=== PATIENT | female | born 1990 | race Caucasian/White ===

== ENCOUNTER 2016-07-21 00:41 | Inpatient (IN) | payer OTHER ==
[~2016-07-21] VITALS: Ht 160 cm; Wt 115.7 kg
[~2016-07-21 00:41] MED LIST: IBUP-974 PO
[2016-07-21] MEDS ORDERED: LACTATED RINGERS 1,000 ML IV SCH (06:32)
[2016-07-21 06:50] LABS: BASOPHILS # (AUTO) 0.1 K/uL (0.00-0.22); EOSINOPHILS # (AUTO) 0.1 K/uL (0-0.4); EOSINOPHILS % (AUTO) 1.7 % (0.0-4.0); HEMOGLOBIN 12.7 g/dL (12.0-16.0); LYMPHOCYTES # (AUTO) 2.1 K/uL (2.5-16.5); MEAN CORPUSCULAR HEMOGLOBIN 29 pg (27-31); MEAN CORPUSCULAR HGB CONC 33 g/dL (33-37); MEAN CORPUSCULAR VOLUME 88 fL (80-94); MONOCYTES # (AUTO) 0.6 K/uL (0.8-1.0); NEUTROPHILS # (AUTO) 5.6 K/uL (1.8-7.7); NEUTROPHILS % (AUTO) 65.3 % (42.2-75.2); PLATELET COUNT (AUTO) 247 K/uL (140-450); RED BLOOD CELL COUNT(AUTO) 4.33 MIL/uL (4.20-5.40); RED CELL DISTRIBUTION WIDTH 12.9 % (11.6-13.7); WHITE BLOOD COUNT (AUTO) 8.5 K/uL (4.8-10.8)
[2016-07-21 06:57] LABS: BILIRUBIN,URINE 1+ (NEGATIVE); BLOOD, URINE NEGATIVE (NEGATIVE); COLOR,URINE YELLOW (YELLOW); LEUKOCYTE ESTERASE ,URINE NEGATIVE (NEGATIVE); NITRITE, URINE NEGATIVE (NEGATIVE); PROTEIN,URINE TRACE (NEGATIVE); UGLUCOSE NEGATIVE (NEGATIVE); UROBILINOGEN,URINE 0.2 EU/dL (0.2 - 1)
[2016-07-21] MEDS ORDERED: CITRIC ACID/SODIUM CITRATE 30 ML UDC PO SCH (07:00)
[2016-07-21] MEDS ORDERED: OXYTOCIN 10 UNITS/ML VIAL ONE ×2 (07:03→07:47)
[2016-07-21 07:21] LABS: APPEARANCE,URINE HAZY (CLEAR)
[2016-07-21 07:24] LABS: ICTOTEST NEGATIVE (NEGATIVE)
[2016-07-21 07:25] LABS: BACTERIA,URINE 1+ /HPF (None Seen); MUCUS,URINE 2+ /LPF (None Seen); RBC,URINE 0-3 /HPF (0-5); WBC,URINE 0-3 /HPF (0-5)
[2016-07-21] MEDS ORDERED: ePHEDrine 50 MG/ML VIAL ONE (07:47)
[2016-07-21 07:49] VITALS: BP 120/71
[2016-07-21] MEDS ORDERED: MORPHINE PRES FREE 10 MG/10 ML AMP IV ONE (07:52)
[2016-07-21] MEDS ORDERED: fentaNYL 0.05 MG/ML VIAL ONE (07:52)
[2016-07-21] MEDS ORDERED: INFLUENZA VIRUS VACCINE QUAD 0.5 ML SYR IMVAC SCH (07:55)
[2016-07-21] MEDS ORDERED: PREN-380 PO (07:56)
[2016-07-21] MEDS ORDERED: FERR-193 PO (07:56)
[2016-07-21] MEDS ORDERED: NALOXONE 0.4 MG/ML VIAL IVP PRN ×3 (08:20)
[2016-07-21] MEDS ORDERED: diphenhydrAMINE 50 MG/ML VIAL IVP PRN (08:20)
[2016-07-21] MEDS ORDERED: NALBUPHINE 10 MG/ML AMP IVP PRN (08:20)
[2016-07-21] MEDS ORDERED: KETOROLAC 60 MG/2 ML VIAL IM PRN (08:20)
[2016-07-21] MEDS ORDERED: ONDANSETRON 4 MG/2 ML VIAL IVP PRN ×2 (08:20)
[2016-07-21] MEDS ORDERED: OXYTOCIN 20 UNITS/LR PREMIX 1,000 ML IV ONE (08:59)
[2016-07-21] MEDS ORDERED: ONDANSETRON 4 MG/2 ML VIAL ONE (08:59)
[2016-07-21] MEDS ORDERED: diphenhydrAMINE 50 MG/ML VIAL ONE (08:59)
--- NOTE | 2016-07-21 09:07 | NUR ---
PATIENT HAS BEEN SCREENED AND CATEGORIZED LOW NUTRITION RISK. PATIENT WILL BE SEEN WITHIN 7 DAYS OF ADMISSION. 07/27/[address]
[2016-07-21] MEDS ORDERED: KETOROLAC 30 MG/ML VIAL IVP PRN (11:50)
[2016-07-21] MEDS ORDERED: HYDROcodone/APAP 5/325 MG 1 TAB TAB PO PRN (12:50)
[2016-07-21] MEDS ORDERED: MAGNESIUM CITRATE 300 ML BTL PO SCH (12:50)
[2016-07-21] MEDS ORDERED: TEMAZEPAM 15 MG CAP PO PRN (12:50)
[2016-07-21] MEDS ORDERED: oxyCODONE/APAP 5/325 MG 1 TAB TAB PO PRN (12:50)
[2016-07-21] MEDS ORDERED: MEASLES, MUMPS, AND RUBELLA 1 VIAL SQVAC PRN (12:50)
[2016-07-21] MEDS ORDERED: SIMETHICONE 80 MG TAB.CHEW PO PRN (12:50)
[2016-07-21] MEDS ORDERED: TRIMETHOBENZAMIDE 200 MG/2 ML SYR IM PRN (12:50)
[2016-07-21] MEDS: OXYTOCIN 20 UNITS/LR PREMIX 1,000 ML IV SCH (17:39)
[2016-07-21] MEDS ORDERED: NACL 0.9% 500 ML IV SCH (18:10)
[2016-07-21] MEDS: DOCUSATE SOD/SENNA 50/8.6 MG 1 TAB PO SCH (21:00)
[2016-07-22] MEDS: OXYTOCIN 20 UNITS/LR PREMIX 1,000 ML IV SCH (02:51)
[2016-07-22 07:07] LABS: BASOPHILS % (AUTO) 0.3 % (0.0-2.0); EOSINOPHILS # (AUTO) 0.1 K/uL (0-0.4); EOSINOPHILS % (AUTO) 0.9 % (0.0-4.0); HEMATOCRIT 27.2 % (36-48); HEMOGLOBIN 8.8 g/dL (12.0-16.0); LYMPHOCYTES # (AUTO) 1.2 K/uL (2.5-16.5); LYMPHOCYTES % (AUTO) 15.3 % (20.5-51.1); MEAN CORPUSCULAR HEMOGLOBIN 29 pg (27-31); MEAN CORPUSCULAR HGB CONC 32 g/dL (33-37); MEAN CORPUSCULAR VOLUME 89 fL (80-94); MONOCYTES # (AUTO) 0.5 K/uL (0.8-1.0); MONOCYTES % (AUTO) 6.8 % (1.7-9.3); NEUTROPHILS # (AUTO) 5.8 K/uL (1.8-7.7); NEUTROPHILS % (AUTO) 76.7 % (42.2-75.2); PLATELET COUNT (AUTO) 174 K/uL (140-450); RED BLOOD CELL COUNT(AUTO) 3.04 MIL/uL (4.20-5.40); WHITE BLOOD COUNT (AUTO) 7.6 K/uL (4.8-10.8)
[2016-07-22] MEDS ORDERED: SODIUM PHOSPHATE 118 ML ENEM RC SCH (09:00)
[2016-07-22] MEDS: IBUPROFEN 800 MG TAB PO PRN ×3 (09:46→23:31)
[2016-07-22 15:13] LABS: HEPATITIS B SURFACE ANTIGEN Negative (Negative)
[2016-07-22] MEDS: DOCUSATE SOD/SENNA 50/8.6 MG 1 TAB PO SCH (21:09)
[2016-07-23 10:34] LABS: RUBELLA IGM ANTIBODY <20.0 AU/mL (0.0-19.9)
[2016-07-23] MEDS: IBUPROFEN 800 MG TAB PO PRN ×2 (12:20→18:28)
== END 2016-07-23 21:50 | disposition home or self-care (01) | DRG 540 ==
LOC: MLD 06:11 → EDUNIT# 07:30 → MFCC 09:06
PROVIDERS: ADMIT Obstetrics & Gynecology; ATTEND Obstetrics & Gynecology
PROC: 10D00Z1 Extraction of Products of Conception, Low, Open Approach (ICD-10-PCS; principal; 2016-07-21 07:30)
DX: O34.211 Maternal care for low transverse scar from previous cesarean delivery (principal); Z68.42 Body mass index [BMI] 45.0-49.9, adult; O99.214 Obesity complicating childbirth; E66.01 Morbid (severe) obesity due to excess calories; O99.62 Diseases of the digestive system complicating childbirth; K21.9 Gastro-esophageal reflux disease without esophagitis; Z37.0 Single live birth; Z28.21 Immunization not carried out because of patient refusal; Z3A.39 39 weeks gestation of pregnancy
CPT/HCPCS: 36415; 51702; 81001; 85025; 86592; 86762; 86886; 86900; 86901; 87081; 87086; 87340; 90658; J0690; J1200; J1885; J2270; J2405; J2590; J3010; J7030; J7060; J7120